=== PATIENT | male | born 2000 | race Two or more races ===

== ENCOUNTER 2024-03-06 09:59 | Emergency (ER) | payer MEDICAID ==
[~2024-03-06] VITALS: Ht 167.6 cm; Wt 99.5 kg
[2024-03-06 10:33] VITALS: BP 152/81; PULSE 77; RESP 18; TEMP 98.7; O2SAT 95
[2024-03-06 10:52] LABS: Urine Bacteria None Seen /hpf (None Seen)
[2024-03-06 11:07] LABS: Urine Blood Negative /uL (Negative); Urine Clarity Clear (Clear); Urine Color Light-Yellow (Yellow); Urine Mucus FEW (None Seen); Urine Protein, UAD Negative (Negative); Urine Specific Gravity 1.023 (1.001-1.035); Urine Urobilinogen Normal (Negative); Urine WBC 1 /hpf (0 - 3); Urine pH 5.5 (5.0-9.0)
[2024-03-06] MEDS ORDERED: DOXY-447 PO (11:45)
[2024-03-06] MEDS ORDERED: NAPR-746 PO (11:45)
[2024-03-08 03:36] LABS: Chlamydia Trachomatis, NAA Negative (Negative); Neisseria gonorrhoeae, NAA Negative (Negative)
== END 2024-03-06 11:48 | disposition home or self-care (01) ==
LOC: ER 09:59
DX: N50.812 Left testicular pain (principal); Z11.3 Encounter for screening for infections with a predominantly sexual mode of transmission; Z79.899 Other long term (current) drug therapy
CPT/HCPCS: 76870; 81001

== ENCOUNTER 2024-05-21 12:18 | Emergency (ER) | payer SELFPAY ==
[~2024-05-21] VITALS: Ht 167.6 cm; Wt 99.6 kg
[~2024-05-21 12:18] MED LIST: DOXY1CAP58 PO; NAPR-746 PO
[2024-05-21 12:53] VITALS: BP 121/87; PULSE 95; RESP 18; TEMP 97; O2SAT 96
[2024-05-21] MEDS ORDERED: CLIN1CAP70 PO (13:05)
[2024-05-21] MEDS ORDERED: IBUP-1456 PO (13:05)
== END 2024-05-21 13:13 | disposition home or self-care (01) ==
LOC: ER 12:18
DX: K02.9 Dental caries, unspecified (principal); Z79.899 Other long term (current) drug therapy

== ENCOUNTER 2025-05-10 12:13 | Emergency (ER) | payer MEDICAID ==
[~2025-05-10] VITALS: Ht 165.1 cm; Wt 101.2 kg
[~2025-05-10 12:13] MED LIST changes: +CLIN1CAP70 PO; +IBUP-1456 PO
[2025-05-10 12:19] VITALS: BP 131/69; PULSE 86; RESP 16; TEMP 98.2; O2SAT 100
== END 2025-05-10 15:13 | disposition left against medical advice (07) ==
LOC: ER 12:13
DX: K08.89 Other specified disorders of teeth and supporting structures (principal); Z53.21 Procedure and treatment not carried out due to patient leaving prior to being seen by health care provider